=== PATIENT | female | born 1985 | race Caucasian/White ===

== ENCOUNTER 2024-10-29 08:59 | Inpatient (IN) | payer OTHER ==
[2024-10-29] MEDS ORDERED: LABETALOL HCL 20 MG/4 ML VIAL ONE (09:46)
[2024-10-29] MEDS: LABETALOL HCL 5 MG/1 ML (100MG/20 ML VIAL) IVPUSH ONE (09:55)
[2024-10-29 10:05] LABS: BASO % 0.4 % (0-2.0); EOS % 0.5 % (0-4.5); HEMATOCRIT 37.8 % (32.4-45.2); HEMOGLOBIN 12.1 GM/dL (10.7-15.3); LYMPH % 21.2 % (8-40); MCHC 31.9 g/dl (32.0-36.0); MEAN CELL VOLUME 87.9 fl (80-96); MEAN PLT VOLUME 7.5 fl (7.5-11.1); MONO % 7.8 % (3.8-10.2); NEUT % 70.1 % (42.8-82.8); PLATELET COUNT 411 10^3/uL (134-434); WHITE BLOOD COUNT 12.6 K/mm3 (4.0-10.0)
[2024-10-29 10:08] LABS: INR 0.86 (0.83-1.09); PROTHROMBIN TIME (PATIENT) 9.8 SEC (9.7-13.0)
[2024-10-29 10:11] LABS: ACTIVATED PTT 27.3 SECONDS (25.2-36.5)
[2024-10-29 10:21] LABS: POTASSIUM 4.4 mmol/L (3.5-5.1)
[2024-10-29 10:23] LABS: ALBUMIN 1.7 g/dl (3.4-5.0); BLOOD UREA NITROGEN 16.7 mg/dL (7-18); CALCIUM 8.7 mg/dL (8.5-10.1)
[2024-10-29 10:26] LABS: URIC ACID 6.2 mg/dL (2.6-7.2)
[2024-10-29 10:27] LABS: CREATININE 1.2 mg/dL (0.55-1.3)
[2024-10-29 10:28] LABS: BILIRUBIN,TOTAL 0.2 mg/dL (0.2-1); TOT PROT 5.4 g/dl (6.4-8.2)
[2024-10-29] MEDS ORDERED: morphine SULFATE/PF 1 MG/2 ML (2cc Syringe - QUVA) ONE (10:57)
[2024-10-29] MEDS ORDERED: FENTANYL CITRATE/PF 50 MCG/ML VIAL ONE (10:58)
[2024-10-29] MEDS: CITRIC ACID/SODIUM CITRATE 30 ML UNIT-DOSE CUP PO ONE (11:07)
[2024-10-29] MEDS: LACTATED RINGERS SOLUTION 1,000 ML/1,000 ML INFUS.BAG IV SCH (11:07)
[2024-10-29 12:19] VITALS: BMI 29.7
[2024-10-29] MEDS ORDERED: MAGNESIUM SULFATE 20GM/500ML - 20 GM/500 ML INFUS.BAG IV SCH (12:45)
[2024-10-29] MEDS ORDERED: OXYTOCIN 20 UNITS in 0.9% NS 20 UNIT/1,000 ML INFUS.BAG IV SCH ×2 (12:45→21:30)
[2024-10-29 13:25] LABS: CORD HCO3 19.7 mmHg (20-29); CORD PCO2 63.6 mmHg (30-78); CORD pH 7.109 (7.14-7.44)
[2024-10-29 13:26] LABS: CORD HCO3 20.2 mmHg (20-29); CORD PCO2 55.3 mmHg (30-78)
[2024-10-29] MEDS ORDERED: OXYTOCIN 20 UNITS in 0.9% NS 20 UNIT/1,000 ML INFUS.BAG IV ONE (13:30)
[2024-10-29] MEDS ORDERED: MAGNESIUM 4GM/H20 - 4 GM/100 ML IVPB IVPB ONE (13:30)
[2024-10-29] MEDS: OXYTOCIN 20 UNITS in 0.9% NS 20 UNIT/1,000 ML INFUS.BAG IV SCH ×2 (13:32→21:00)
[2024-10-29] MEDS: MAGNESIUM 4GM/H20 - 4 GM/100 ML IVPB IVPB ONE (13:33)
[2024-10-29] MEDS ORDERED: MAGNESIUM SULFATE 20GM/500ML - 20 GM/500 ML INFUS.BAG ONE (14:05)
[2024-10-29] MEDS: MAGNESIUM SULFATE 20GM/500ML - 20 GM/500 ML INFUS.BAG IV SCH (14:10)
[2024-10-29] MEDS ORDERED: LABETALOL HCL 200 MG TABLET (FP) ONE ×2 (14:22→22:08)
[2024-10-29] MEDS: LABETALOL HCL 200 MG TABLET (FP) PO STA (14:24)
[2024-10-29] MEDS ORDERED: ACETAMINOPHEN INJECTION 100 ML ONE ×2 (15:04→20:46)
[2024-10-29] MEDS: ACETAMINOPHEN 1000 MG/100 ML BAG IVPB PRN (15:06)
[2024-10-29 16:15] LABS: SYPHILIS W/ RPR CONF NON-REACTIVE (NONREACTIVE)
[2024-10-29 16:44] LABS: HIV INTERPRETATION NEGATIVE (NEGATIVE)
[2024-10-29 20:59] LABS: MAGNESIUM 8.3 mg/dL (1.8-2.4)
[2024-10-29] MEDS: MAGNESIUM SULFATE 20GM/500ML - 20 GM/500 ML INFUS.BAG IVPB SCH (21:00)
[2024-10-29] MEDS: LABETALOL HCL 200 MG TABLET (FP) PO SCH (22:10)
[2024-10-30] MEDS ORDERED: OXYTOCIN 20 UNITS in 0.9% NS 20 UNIT/1,000 ML INFUS.BAG IV ONE ×2 (01:47→11:52)
[2024-10-30] MEDS ORDERED: MAGNESIUM SULFATE 20GM/500ML - 20 GM/500 ML INFUS.BAG ONE (02:49)
[2024-10-30] MEDS ORDERED: ACETAMINOPHEN INJECTION 100 ML ONE ×2 (02:53→09:15)
[2024-10-30] MEDS ORDERED: IBUPROFEN 600 MG TABLET (FP) PO ONE (06:20)
[2024-10-30] MEDS: IBUPROFEN 600 MG TABLET (FP) PO PRN ×2 (06:24→15:30)
[2024-10-30] MEDS ORDERED: PRENATAL VITAMINS W/ FOLIC ACID TABLET (FP) PO ONE (09:15)
[2024-10-30] MEDS ORDERED: LABETALOL HCL 200 MG TABLET (FP) ONE (09:15)
[2024-10-30] MEDS: PRENATAL VITAMINS W/ FOLIC ACID TABLET (FP) PO SCH (09:18)
[2024-10-30 09:45] LABS: BASO % 0.1 % (0-2.0); HEMOGLOBIN 12.4 GM/dL (10.7-15.3); LYMPH % 14.3 % (8-40); MCH 28.1 pg (25.7-33.7); MCHC 31.8 g/dl (32.0-36.0); MEAN CELL VOLUME 88.2 fl (80-96); MEAN PLT VOLUME 7.4 fl (7.5-11.1); MONO % 6.5 % (3.8-10.2); NEUT % 79.1 % (42.8-82.8); PLATELET COUNT 455 10^3/uL (134-434); RBC 4.42 M/mm3 (3.60-5.2); RDW 14.5 % (11.6-15.6); WHITE BLOOD COUNT 19.1 K/mm3 (4.0-10.0)
[2024-10-30] MEDS ORDERED: ONDANSETRON 4 MG/2 ML VIAL ONE (10:49)
[2024-10-30] MEDS: ONDANSETRON 4 MG/2 ML VIAL IVPUSH PRN (10:54)
[2024-10-30] MEDS ORDERED: DIPHTH,PERTUSS(ACELL),TET 0.5 ML DISP.SYRIN IM ONE ×2 (11:00)
[2024-10-30] MEDS ORDERED: FLU VACCINE (FLULAVAL) PF 45 MCG/0.5 ML SYRINGE 2024-2025 IM ONE (11:00)
[2024-10-30] MEDS ORDERED: BISACODYL 10 MG SUPP.RECT RC PRN (12:33)
[2024-10-30] MEDS: SIMETHICONE 80 MG TAB.CHEW (FP) PO PRN (15:31)
[2024-10-30] MEDS: ACETAMINOPHEN 325 MG TABLET (FP) PO PRN (17:22)
[2024-10-30] MEDS: ACETAMINOPHEN 1000 MG/100 ML BAG IVPB PRN (20:21)
[2024-10-31] MEDS: IBUPROFEN 800 MG/8 ML IJ IVPB PRN (01:16)
[2024-10-31] MEDS ORDERED: oxyCODONE HCL 5 MG TABLET PO PRN (07:52)
[2024-10-31] MEDS: oxyCODONE HCL 5 MG TABLET PO PRN (08:31)
[2024-10-31] MEDS ORDERED: FLU VACCINE (FLULAVAL) PF 45 MCG/0.5 ML SYRINGE 2024-2025 IM ONE (10:00)
[2024-10-31] MEDS ORDERED: DIPHTH,PERTUSS(ACELL),TET 0.5 ML DISP.SYRIN IM ONE (10:00)
[2024-10-31] MEDS: ACETAMINOPHEN 325 MG TABLET (FP) PO PRN (11:15)
[2024-11-01 08:13] LABS: BASO % 0.3 % (0-2.0); EOS % 0.7 % (0-4.5); HEMATOCRIT 30.8 % (32.4-45.2); LYMPH % 24.5 % (8-40); MCH 28.1 pg (25.7-33.7); MCHC 32.4 g/dl (32.0-36.0); MEAN CELL VOLUME 86.6 fl (80-96); MEAN PLT VOLUME 6.9 fl (7.5-11.1); MONO % 6.8 % (3.8-10.2); NEUT % 67.7 % (42.8-82.8); PLATELET COUNT 379 10^3/uL (134-434); RBC 3.56 M/mm3 (3.60-5.2); RDW 14.6 % (11.6-15.6); WHITE BLOOD COUNT 10.4 K/mm3 (4.0-10.0)
[2024-11-01] MEDS: FLU VACCINE (FLULAVAL) PF 45 MCG/0.5 ML SYRINGE 2024-2025 IM ONE (10:05)
[2024-11-01] MEDS: DIPHTH,PERTUSS(ACELL),TET 0.5 ML DISP.SYRIN IM ONE (10:09)
[2024-11-02 08:34] VITALS: RESP 16; TEMP 98
[2024-11-02 11:38] VITALS: BP 132/94; PULSE 79
== END 2024-11-02 11:59 | disposition home or self-care (01) | DRG 788 ==
LOC: JDEL 08:59 → JLDR 10:20 → J3W 10-30 14:45
PROVIDERS: ADMIT Obstetrics & Gynecology; ATTEND Obstetrics & Gynecology
PROC: 10D00Z1 Extraction of Products of Conception, Low, Open Approach (ICD-10-PCS; principal; 2024-10-29)
DX: O14.14 Severe pre-eclampsia complicating childbirth (principal); Z3A.35 35 weeks gestation of pregnancy; O60.14X0 Preterm labor third trimester with preterm delivery third trimester, not applicable or unspecified; O69.81X0 Labor and delivery complicated by cord around neck, without compression, not applicable or unspecified; O69.89X0 Labor and delivery complicated by other cord complications, not applicable or unspecified; Z37.0 Single live birth
CPT/HCPCS: 36415; 36600; 80053; 82803; 83735; 84550; 85025; 85610; 85730; 86780; 86850; 86900; 86901; 87389; 88307-TC; 90656; 90715; G0008; J0131

== ENCOUNTER 2025-02-18 05:44 | Day surgery (SDC) | payer OTHER ==
[2025-02-14 16:05] VITALS: BMI 25.7
[2025-02-18] MEDS ORDERED: ONDANSETRON 4 MG/2 ML VIAL IVPUSH PRN (11:09)
[2025-02-18] MEDS ORDERED: oxyCODONE HCL 5 MG TABLET PO PRN (11:09)
[2025-02-18] MEDS ORDERED: LACTATED RINGERS SOLUTION 1,000 ML IV SCH ×2 (11:15→15:45)
[2025-02-18] MEDS ORDERED: BUPIVACAINE HCL/PF 0.25% (2.5MG/ML) 10 ML VIAL ONE (11:35)
[2025-02-18] MEDS ORDERED: MIDAZOLAM HCL 2 MG/2 ML SINGLE DOSE VIAL ONE (11:47)
[2025-02-18] MEDS ORDERED: PROPOFOL 20 ML ONE (11:47)
[2025-02-18] MEDS ORDERED: ROCURONIUM BROMIDE 50 MG/5 ML SYRINGE ONE ×2 (11:47→14:35)
[2025-02-18] MEDS ORDERED: ceFAZolin SODIUM 1 GM VIAL ONE (11:48)
[2025-02-18] MEDS ORDERED: LIDOCAINE HCL 2% 100 MG/5 ML DISP.SYRIN ONE (11:48)
[2025-02-18] MEDS ORDERED: DEXAMETHASONE SOD PHOSPHATE 4 MG/1 ML VIAL ONE (11:48)
[2025-02-18] MEDS: ceFAZolin SODIUM 1 GM VIAL IVPB ONE ×2 (12:45)
[2025-02-18] MEDS: BUPIVACAINE HCL/PF 0.25% (2.5MG/ML) 10 ML VIAL IJ ONE ×2 (13:02)
[2025-02-18] MEDS ORDERED: SUGAMMADEX SODIUM 200 MG/2 ML VIAL ONE (15:09)
[2025-02-18] MEDS ORDERED: ACETAMINOPHEN INJECTION 100 ML ONE (16:03)
[2025-02-18] MEDS: ACETAMINOPHEN 1000 MG/100 ML BAG IVPB ONE (16:14)
[2025-02-18 16:49] VITALS: RESP 16
[2025-02-18] MEDS ORDERED: oxyCODONE HCL 5 MG TABLET ONE (17:11)
[2025-02-18] MEDS: oxyCODONE HCL 5 MG TABLET PO PRN (17:14)
[2025-02-18 17:33] VITALS: BP 105/75; PULSE 81; TEMP 98.2
== END 2025-02-18 17:50 | disposition home or self-care (01) ==
LOC: JASU-SURG 05:44
PROVIDERS: ATTEND Surgery
PROC: 8E0W4CZ Robotic Assisted Procedure of Trunk Region, Percutaneous Endoscopic Approach (ICD-10-PCS; 2025-02-18)
PROC: 0WUF4JZ Supplement Abdominal Wall with Synthetic Substitute, Percutaneous Endoscopic Approach (ICD-10-PCS; principal; 2025-02-18 11:00)
DX: K42.9 Umbilical hernia without obstruction or gangrene (principal)
CPT/HCPCS: 49593; S2900; 81025; 82010; 94760; C1781; J0131